=== PATIENT | female | born 1965 | race Caucasian/White ===

== ENCOUNTER 2022-01-06 15:05 | Emergency (ER) | payer OTHER ==
[2022-01-06] MEDS ORDERED: AMOX TR-K CLV1 EAC4 PO (17:11)
[2022-01-06] MEDS ORDERED: NORCO 5-325 TA1 EACH PO (17:11)
== END 2022-01-06 17:30 | disposition home or self-care (01) ==
LOC: FER 15:05
DX: S61.451A Open bite of right hand, initial encounter (principal); S71.151A Open bite, right thigh, initial encounter; S31.050A Open bite of lower back and pelvis without penetration into retroperitoneum, initial encounter; W54.0XXA Bitten by dog, initial encounter
CPT/HCPCS: 99283